=== PATIENT | female | born 1945 | race Caucasian/White ===

== ENCOUNTER 2017-04-04 06:00 | Observation (INO) ==
[~2017-04-04 06:00] MED LIST: LIDOCAINE W/ SODIUM BICARB 0.5 ML SYR SUBD ONE; Lactated Ringers 1,000 ML PRIMARY IV SCH; ceFAZolin Inj 3 GM in Sodium Chloride 0.9% 100 ML IV ONE
[2017-04-04] MEDS ORDERED: ROCURONIUM 10 MG/1 ML - 5 ML VIAL IVP ONE (10:07)
[2017-04-04] MEDS ORDERED: BUPivacaine Liposome/PF (Exparel) Inj 20ml vial INFIL ONE (10:19)
[2017-04-04] MEDS ORDERED: Sodium Chloride 0.9% vial 20 ML ONE ×2 (10:19→10:23)
[2017-04-04] MEDS ORDERED: REMIFENTANIL 1 MG/1 ML IV ONE (10:22)
[2017-04-04] MEDS ORDERED: KETAMINE 100 MG/1 ML - 5 ML ONE (10:23)
[2017-04-04] MEDS ORDERED: fentaNYL Inj 100 MCG/2 ML VIAL ONE (10:23)
[2017-04-04] MEDS ORDERED: MIDAZOLAM 5 MG/1 ML ONE (10:23)
[2017-04-04] MEDS ORDERED: Sodium Chloride 0.9% vial 10 ML ONE (10:26)
[2017-04-04] MEDS ORDERED: LIDOCAINE MPF 2% - 5 ML (20 MG/1 ML) ONE (10:27)
[2017-04-04] MEDS ORDERED: PROPOFOL 10 MG/1 ML (200 MG/20 ML) VIAL IV ONE (10:29)
[2017-04-04] MEDS ORDERED: SUCCINYLCHOLINE CHLORIDE 20 MG/1 ML - 10 ML ONE (10:29)
[2017-04-04] MEDS ORDERED: PHENYLEPHRINE 10,000 MCG/1 ML VIAL ONE (11:13)
[2017-04-04] MEDS ORDERED: DEXAMETHASONE PF 10 MG/1 ML VIAL ONE (11:37)
[2017-04-04] MEDS ORDERED: Lactated Ringers 1,000 ML PRIMARY IV ONE (11:51)
[2017-04-04] MEDS ORDERED: KETOROLAC 30 MG/1 ML VIAL ONE (11:56)
[2017-04-04] MEDS ORDERED: ONDANSETRON 4 MG/2 ML VIAL ONE (11:59)
[2017-04-04] MEDS ORDERED: SUGAMMADEX SODIUM 200 MG/2 ML VIAL IV ONE (12:04)
--- NOTE | 2017-04-04 12:31 | GEN.OPNOTE ---
Operative Note Surgery Date: 04/04/17 Preoperative Diagnosis: Recurrent and incarcerated incisional hernia. Postoperative Diagnosis: Recurrent and incarcerated incisional hernia. Procedure: #1 repair recurrent and incarcerated incisional hernia. #2 Marlex mesh onlay. Surgeon: Wisam Sanchez MD Realtime Reporter: Keith Samuel MD Anesthesia Provider: Nancy West CRNA Anesthesia Type: General Estimated Blood Loss (mL): 20 Fluids: 1200 mL of crystalloid. 3 g of IV Ancef at the start of the procedure. 15 mg of IV Toradol at the end of the procedure. Pathology: No specimen sent for pathologic analysis. Indications: Symptomatic an incarcerated recurrent incisional hernia containing intestine. Findings: Hernia containing omentum and colon. Complications: None. Operative Summary: The patient was taken to the operating suite and placed on the operating table in a supine position. Following the induction of general anesthetic the abdomen was prepped and draped in a sterile fashion. A surgical timeout was done. An ellipse to excise the thinned out skin and the umbilicus over the hernia was made. Electrocautery was used to transect the subcutaneous fat down to the hernia. The hernia was freed circumferentially down to the fascia. The hernia sac was excised. The incarcerated contents were reduced through the defect. The fascia was trimmed back to adequate tissue. The fascia was closed in the midline with running #1 Prolene. The subcutaneous tissue was cleared off the fascia anteriorly. The fascia appeared adequate. An oval shaped piece of Marlex mesh was cut to fit over the repair. It overlapped the midline repair by at least three quarters of an inch in all directions. It was sewn in circumferentially with 2-0 Prolene. Several simple stitches were placed down the middle of the mesh to tack it down. The wound was irrigated. Hemostasis was assured. Exparel was infiltrated into the subcutaneous tissue circumferentially. The space was closed by tacking the subcutaneous fat to the mesh with 2-0 Vicryl. The skin was closed with surgical asaf followed by an appropriate dressing. Patient tolerated the entire procedure well without complication. She was taken to outpatient surgery in stable condition. All counts were correct. Procedure Codes - Surgical Procedures Primary Surgical Procedure: 79426 : Inc/Vent Hernia, Inc/Str Secondary Surgical Procedure: 43064 : Implant/Mesh Prosthesis
[2017-04-04] MEDS ORDERED: HYDROmorphone 2 MG/1 ML ONE (12:41)
[2017-04-04] MEDS: HYDROmorphone 2 MG/1 ML IVP PRN ×3 (12:46→13:00)
[2017-04-04] MEDS ORDERED: NORMAL SALINE 10 ML SYRINGE FLUSH IVP PRN (13:16)
[2017-04-04] MEDS ORDERED: ONDANSETRON 4 MG/2 ML VIAL IVP PRN ×2 (13:16→13:34)
[2017-04-04] MEDS ORDERED: Ondansetron ODT Tab 8 MG TAB PO PRN (13:16)
[2017-04-04] MEDS ORDERED: ATROPINE SULFATE 0.4 MG/1 ML VIAL IVP PRN (13:16)
[2017-04-04] MEDS ORDERED: Lactated Ringers 1,000 ML PRIMARY IV SCH (13:30)
[2017-04-04] MEDS ORDERED: HYDROcodone-APAP 5 MG -325 MG TABLET PO PRN (13:34)
[2017-04-04] MEDS ORDERED: MORPHINE SULFATE 2 MG/1 ML IVP PRN (13:34)
[2017-04-04] MEDS ORDERED: Acetaminophen 1000mg Inj 1,000 MG/100 ML VIAL IV PRN (13:34)
[2017-04-04] MEDS ORDERED: IPRATROPIUM/ALBUTEROL SULFATE 3 ML NEB NEB PRN (13:34)
[2017-04-04] MEDS: FUROSEMIDE 40 MG TABLET PO SCH (14:42)
[2017-04-04] MEDS: KETOROLAC 15 MG/1 ML VIAL IVP SCH ×2 (17:50→23:59)
[2017-04-04] MEDS: NORMAL SALINE 10 ML SYRINGE FLUSH IVP PRN ×2 (17:50→23:58)
[2017-04-04] MEDS: Lactated Ringers 1,000 ML PRIMARY IV SCH (20:07)
[2017-04-04 20:27] VITALS: RESP 20
[2017-04-05] MEDS ORDERED: LEVOTHYROXINE 137 MCG TABLET PO SCH (05:30)
[2017-04-05] MEDS: KETOROLAC 15 MG/1 ML VIAL IVP SCH ×2 (05:46→12:37)
[2017-04-05] MEDS: NORMAL SALINE 10 ML SYRINGE FLUSH IVP PRN ×2 (05:47→12:37)
[2017-04-05] MEDS: Lactated Ringers 1,000 ML PRIMARY IV SCH (06:27)
[2017-04-05] MEDS: FUROSEMIDE 40 MG TABLET PO SCH (08:32)
[2017-04-05] MEDS ORDERED: Potassium Chloride Tab 10 MEQ TAB PO SCH (09:00)
[2017-04-05 11:50] VITALS: BP 116/66; TEMP 97.3; O2SAT 93
--- NOTE | 2017-04-05 13:09 | DCSUMMARY ---
Discharge Summary Admit Date: 04/04/17 Discharge Date: 04/05/17 Admitting Diagnosis: recurrent and incarcerated incisional hernia. Discharge Diagnosis: Recurrent and incarcerated incisional hernia. Status post surgical repair. Primary Surgery and Date: Repair recurrent and incarcerated incisional hernia with Marlex mesh placement. 04/04/2017 Hospital Course: Patient presented with a recurrent and incarcerated incisional hernia. She underwent uncomplicated repair yesterday. She has done extremely well postoperatively. She is comfortable. She is tolerating a diet. She is passing gas. She is ambulating. She is voiding. Her pain is well controlled without narcotics. She is ready to be discharged back to the snf in stable condition Exam - Vitals Vital Signs: Vital Signs Temperature 97.3 F Temperature Source Temporal Artery Scan Pulse Rate [Pulse Oximeter] 69 Pulse Rate 71 Respiratory Rate 20 Blood Pressure [Left Arm] 116/66 Blood Pressure 153/97 Pulse Ox 93 Oxygen Flow Rate 2 Oxygen Delivery Method Room Air Height 5 ft 9 in Weight 326 lb 9.6 oz - General General Appearance: No Acute Distress, Cooperative - Respiratory Respiratory Exam: POSITIVE: Clear to Auscultation - Bilaterally, Breathing Non Labored - Cardiovascular Cardiovascular Exam: POSITIVE: RRR, No Murmur - GI/Abdominal GI/Abdominal Exam: POSITIVE: Normal Bowel Sounds, Non Distended, Soft Additional GI/Abdominal Exam Details: The dressing is clean, dry, and intact. There is some incisional tenderness. - Neurological Neurological Exam: POSITIVE: Alert - Psychiatric Psychiatric Exam: POSITIVE: Normal Affect, Normal Mood Data Procedures: Repair recurrent and incarcerated incisional hernia with Marlex mesh placement. Patient Problems - Patient Problem List (1) History of incisional hernia repair Current Visit: Yes Status: Acute Priority: High Comment: Doing very well postoperatively. Ready to be discharged home to the nursing care facility where she is a chronic resident. Please see discharge instructions and prescriptions. Patient will need to be seen in the office in approximately 2 weeks for staple removal. Sooner for any problems. Code(s): Z98.890 - Other specified postprocedural states; Z87.19 - Personal history of other diseases of the digestive system Category: Medical (2) Incarcerated incisional hernia Current Visit: Yes Status: Acute Priority: Medium Comment: Surgically corrected. Code(s): K43.0 - Incisional hernia with obstruction, without gangrene Category: Medical
--- NOTE | 2017-05-07 07:13 | CRNA.PROGR ---
Anesthesia Time - - Start date: 04/04/17 End date: 04/04/17 - Procedure/Recovery Time Anesthesia : Time In: 10:59 Anesthesia : Time Out: 12:21 Anesthesia : Total Time: 82 - Total Anesthesia Time Total Anesthesia Time (minutes): 82 - Other Weight: 148.143 kg Height: 5 ft 9 in Body Mass Index (BMI): 48.2 Physical Status: P3 (Morbid obesity) Anesthesia Type: General Anesthesia : ET
--- NOTE | 2017-05-07 07:22 | CRNA.PROGR ---
Anesthesia Note - Progress Notes Anesthesia Progress Note: Pt did so well she was dismissed home prior to me seeing her the following day. No reported anesthetic difficulties. This is a late entry.
== END 2017-04-05 15:05 ==
LOC: MED/SURG 06:00 → OR 06:00 → OPS 09:29 → EDSTATUS 12:00 → MED/SURG 13:22 → EDSTATUS 15:52
PROVIDERS: ADMIT Surgery; ATTEND Surgery